=== PATIENT | female | born 1980 | race Two or more races ===

== ENCOUNTER 2018-01-03 18:14 | Emergency (ER) | payer OTHER ==
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
[2018-01-04 07:09] LABS: HEP A AB IGM Negative (Negative); HEP B CORE IGM Negative (Negative); HEP B SURFACE AG QL Negative (Negative); HEP C ANTIBODY 0.1 s/co ratio (0.0-0.9)
== END 2018-01-03 19:10 | disposition home or self-care (01) ==
LOC: ER 18:14
DX: Z77.21 Contact with and (suspected) exposure to potentially hazardous body fluids (principal); H61.23 Impacted cerumen, bilateral
CPT/HCPCS: 36415-UA; 80074-90; 86703-TC; 86706-90; Z7502